=== PATIENT | female | born 1995 | race American Indian/Alaskan Native ===

== ENCOUNTER 2023-03-15 18:09 | Emergency (ER) | payer MEDICAID ==
[2023-03-15 19:06] VITALS: BP 151/99; PULSE 95
== END 2023-03-15 19:08 | disposition left against medical advice (07) ==
LOC: DL.ED 18:09
DX: Z53.21 Procedure and treatment not carried out due to patient leaving prior to being seen by health care provider (principal)

== ENCOUNTER 2025-04-04 14:24 | Emergency (ER) | payer MEDICAID ==
[2025-04-04 14:41] VITALS: BP 137/85; PULSE 91
== END 2025-04-04 15:11 | disposition home or self-care (01) ==
LOC: DL.ED 14:24
DX: J45.20 Mild intermittent asthma, uncomplicated (principal)
CPT/HCPCS: 99283; 99284